=== PATIENT | female | born 1945 | race Caucasian/White ===

== ENCOUNTER 2020-02-10 10:14 | Emergency (ER) | payer MEDICARE ==
--- NOTE | 2020-02-10 11:12 | RAD ---
Right elbow 3 views HISTORY: Fall. Injury. FINDINGS: Comminuted predominantly transverse fracture extends just above the level of the condyles. There is resultant apex dorsal angulation. Small adjacent fracture fragments are present, largest just above the medial humeral epicondyle, at 1.1 cm. Radiocapitellar alignment is maintained. Osteophytosis throughout the joints. Fluid distends the join t capsule. IMPRESSION : Comminuted, angulated transcondylar fracture with hemarthrosis.
--- NOTE | 2020-02-10 11:13 | RAD ---
Right forearm 2 views HISTORY: Fall. Injury. FINDINGS: The radius and ulna are intact. Fracture of the distal humerus better detailed on dedicated elbow exam.
--- NOTE | 2020-02-10 11:15 | RAD ---
Chest one view HISTORY: Syncope. FINDINGS: Cardiac silhouette and pulmonary vasculature are unremarkable. Mediastinum is midline with aortic calcification. Lungs are hyperinflated. No confluent airspace consolidation or evidence of pneumothorax. IMPRESSION : Pulmonary hyperinflation. Consider emphysema. Atherosclerosis.
--- NOTE | 2020-02-10 11:21 | CT ---
CT head noncontrast HISTORY: Recent fall. Altered mental status. FINDINGS: There is no evidence of acute intracranial hemorrhage or infarct. Mild chronic ischemic sma ll vessel disease throughout the periventricular white matter of each cerebral hemisphere. There is no mass effect or shift of midline structures. Visualized paranasal sinuses remain well aerated. Postoperative changes of the right middle lobe appa rent. IMPRESSION : No acute intracranial abnormalities are demonstrated.
[2020-02-10 11:43] LABS: ALT (SGPT) 21 U/L (8-55); AST (SGOT) 43 U/L (5-34); Albumin 4.1 g/dL (3.4-4.8); Alkaline Phosphatase 89 U/L (40-110); Anion Gap 18 mmol/L (10-20); BUN (Urea Nitrogen) 12 mg/dL (9.8-20.1); Bilirubin, Total 0.6 mg/dL (0.2-1.2); Calc. Creatinine Clearance 0 mL/min (70-130); Calcium 9.2 mg/dL (7.8-10.44); Carbon Dioxide 23 mmol/L (23-31); Chloride 84 mmol/L (98-107); Estimated GFR-MDRD 63; Globulin 3.3 g/dL (2.4-3.5); Glucose 93 mg/dL (83-110); Potassium 4.4 mmol/L (3.5-5.1); Protein, Total 7.4 g/dL (6.0-8.3); Sodium 121 mmol/L (136-145)
[2020-02-10 12:09] LABS: #Basophils 0.1 thou/uL (0.0-0.2); #Eosinphils 0.1 thou/uL (0.0-0.7); #Lymphocytes 2.3 thou/uL (1.20-3.40); #Monocytes 0.8 thou/uL (0.11-0.59); %Basophils 1.1 % (0.0-1.0); %Eosinophils 0.6 % (0.0-10.0); %Lymphocytes 24.9 % (21.0-51.0); %Monocytes 8.7 % (0.0-10.0); %Neutrophils 64.7 % (42.0-75.0); Hemoglobin 13.9 g/dL (12.0-16.0); Mean Corpuscular HGB CONC 35.7 g/dL (32.0-36.0); Mean Corpuscular Hemoglobin 38.3 pg (27.0-31.0); Mean Platelet Volume 7.5 fL (7.4-10.4); Platelet Count 342 thou/uL (130-400); RBC Distribution Width 12.6 % (11.5-14.5); Red Blood Cell (RBC) Count 3.64 mill/uL (4.20-5.40); White Blood Cell (WBC) Count 9.2 thou/uL (4.8-10.8)
[2020-02-10 12:12] LABS: MDiff Complete? YES; Macrocytosis SLIGHT = 6-15 cells (100X) (0-5/hpf); Platelet Morphology Comment Appears Adequate; Polychromasia SLIGHT = 2-3 cells (100X) (0-2/hpf); Target Cells SLIGHT = 2-5 cells (100X) (0-1/hpf)
[2020-02-10] MEDS ORDERED: Fentanyl 100 MCG/2 ML VIAL ONE (12:22)
--- NOTE | 2020-02-10 12:26 | PDOC.FPRHP ---
- History of Present Illness Chief Complaint: Arm pain History of Present Illness: Patient is a 74 yo female with PMH of ... who presented to the ER after suffering a fall - History PMHx: PSHx: FHx: Social: - Vital signs BP: [] HR: [] RR: [] Tmax: [] Pox: []% on [] Wt: [] FMR H&P: Results - Labs Result Diagrams: 02/10/20 11:08 02/10/20 11:08 Lab results: WBC 9.2 thou/uL (4.8-10.8) 02/10/20 11:08 Hgb 13.9 g/dL (12.0-16.0) 02/10/20 11:08 Hct 39.1 % (36.0-47.0) 02/10/20 11:08 MCV 107.0 fL (78.0-98.0) H 02/10/20 11:08 Plt Count 342 thou/uL (130-400) 02/10/20 11:08 Neutrophils % 64.7 % (42.0-75.0) 02/10/20 11:08 Sodium 121 mmol/L (136-145) L 02/10/20 11:08 Potassium 4.4 mmol/L (3.5-5.1) 02/10/20 11:08 Chloride 84 mmol/L (98-107) L 02/10/20 11:08 Carbon Dioxide 23 mmol/L (23-31) 02/10/20 11:08 BUN 12 mg/dL (9.8-20.1) 02/10/20 11:08 Creatinine 0.87 mg/dL (0.6-1.1) 02/10/20 11:08 Glucose 93 mg/dL (83-110) 02/10/20 11:08 Calcium 9.2 mg/dL (7.8-10.44) 02/10/20 11:08 Total Bilirubin 0.6 mg/dL (0.2-1.2) 02/10/20 11:08 AST 43 U/L (5-34) H 02/10/20 11:08 ALT 21 U/L (8-55) 02/10/20 11:08 Alkaline Phosphatase 89 U/L (40-110) 02/10/20 11:08 Serum Total Protein 7.4 g/dL (6.0-8.3) 02/10/20 11:08 Albumin 4.1 g/dL (3.4-4.8) 02/10/20 11:08 FMR H&P: Upper Level - Plan Date/Time: 02/10/20 1226 74 y/o F admitted to service for hyponatremia eval and treatment with recent fall with R elbow fracture. 1. Hyponatremia - Likely 2/2 chronic etoh use - I, [], have evaluated this patient and agree with findings/plan as outlined by wireless internet installer resident. Pertinent changes/additions are listed here.
[2020-02-10 16:12] LABS: Acetaminophen Less than 6.0 mcg/mL (10.0-30.0); Alcohol Less than 10 mg/dL (Less than 10); Salicylate Less than 8.0 mg/dL (15.0-30.0)
== END 2020-02-10 13:00 | disposition left against medical advice (07) ==
LOC: ERS 10:14
DX: S42.471A Displaced transcondylar fracture of right humerus, initial encounter for closed fracture (principal); E87.1 Hypo-osmolality and hyponatremia; I48.92 Unspecified atrial flutter; J43.9 Emphysema, unspecified; F17.210 Nicotine dependence, cigarettes, uncomplicated; W01.0XXA Fall on same level from slipping, tripping and stumbling without subsequent striking against object, initial encounter
CPT/HCPCS: 24530; 70450; 71045; 80053; 80307; 84443; 84484; 85025; 93005; J3010